=== PATIENT | male | born 1955 | race Caucasian/White ===

== ENCOUNTER 2017-01-15 12:06 | Inpatient (IN) | payer OTHER ==
[2017-01-15] MEDS ORDERED: NS 1,000 ML IV ONE (12:42)
--- NOTE | 2017-01-15 12:59 | EKG Report ---
Test Performed on : 01/15/2017 12:34:40 PM Test Reason : chest pain Blood Pressure : / mmHG Vent. Rate : 120 BPM Atrial Rate : 120 BPM P-R Int : 170 ms QRS Dur : 088 ms QT Int : 296 ms P-R-T Axes : 064 062 063 degrees QTc Int : 418 ms Sinus tachycardia. Otherwise normal ECG No previous ECGs available Unconfirmed Result
--- NOTE | 2017-01-15 13:00 | PROVIDER DOCUMENTATION ---
HPI-Cardiac General - General Chief Complaint: Palpitations Stated Complaint: WEAKNESS/PALPIATIONS Time Seen by Provider: 01/15/17 12:22 Source: patient Allergies/Adverse Reactions: Patient Allergies Allergy/AdvReac Type Severity Reaction Status Date / Time Penicillins AdvReac Unknown Verified 01/15/17 12:14 Home Medications: Home Medication List Medication Instructions Recorded Confirmed Last Taken Type Canagliflozin [Invokana] 300 mg PO DAILY 01/15/17 01/15/17 Unknown History Dulaglutide [Trulicity] 1.5 mg SQ 01/15/17 Unknown History Metformin HCl [Metformin HCl ER] 1,000 mg PO BID 01/15/17 01/15/17 Unknown History Pioglitazone HCl 45 mg PO DAILY 01/15/17 01/15/17 Unknown History SIMVAstatin [Zocor] 40 mg PO QHS 01/15/17 01/15/17 Unknown History Tamsulosin HCl 0.4 mg PO BID 01/15/17 01/15/17 Unknown History - History of Present Illness-Cardiac Nature of Presenting Problem: Pt is a 61 yom who came to the ED with a cc of palpitations. Pt reports he was previously diagnosed with a heart murmur by his doctor. This morning the pt and his were eating breakfast and he took his fourth shot of trulicity, and shortly after that he started having heart palpitations. Pt reports this is the first time this has happen after taking the trulicity. Pt reports he also is having leg cramps that wake him up 3-4 times a night, which have been going on for a year but over the past two weeks the cramps have worsened. Quality of Pain: reports: none Onset/Duration: this morning Timing: still present Context/Activities at Onset: reports: none Modifying Factors: improves with: nothing Palpitation Quality: fast/pounding heart beat Recent use of:: reports: no stimulants Nitro Today/Relief: reports: no nitro taken today Aspirin Treatment Today: reports: no aspirin today Prior Chest Pain/Cardiac Workup: reports: no prior chest pain Associated Symptoms: reports: denies symptoms Similar Symptoms Previously?: No Recently Seen Here or By Another Healthcare Provider: No Review of Systems - Adult - REVIEW OF SYSTEMS - ADULT Constitutional: reports: chills. denies: fever, fatique Eyes: reports: no symptoms reported Ears, Nose, Mouth & Throat: denies: sinus problem, mouth/dental pain Cardiovascular: reports: palpitations, other (tachycardia). denies: chest pain , irregular heart rate, poor circulation Respiratory: reports: no symptoms reported Gastrointestinal: denies: diarrhea, nausea, vomiting Genitourinary: reports: no symptoms reported Musculoskeletal: reports: frequent leg cramps. denies: joint pain, joint swelling Integumentary: reports: no symptoms reported Neurological: reports: no symptoms reported Psychiatric: reports: no symptoms reported Endocrine: reports: no symptoms reported Hematologic/Lymphatic: reports: no symptoms reported Allergic/Immunologic: reports: no symptoms reported All Other Systems: Reviewed and Negative Past History - Adult - PAST MEDICAL HISTORY-ADULT Review of Records: reports: Old Records Reviewed, Nursing Assessment Review Major Childhood Illnesses: reports: denies history Cardiovascular: reports: murmur Respiratory: reports: denies history Gastrointestinal: reports: denies history Obstetrical/Gynecological: reports: denies history Genitourinary: reports: denies history Musculoskeletal: reports: denies history Neurological: reports: denies history Endocrine/Immune: reports: Diabetes Other Conditions: reports: denies history - IMMUNIZATION STATUS Childhood Immunizations: See Nurse Assessment Flu Vaccine: See Nurse Assessment - FAMILY HISTORY Family History: reviewed, not pertinent Physical Exam-General - PHYSICAL EXAM-ADULT Initial Vital Signs Reviewed: Yes - CONSTITUTIONAL General Appearance: appears well, alert, no apparent distress - EYES Eyes: PERRL/EOMI, pink conjunctivae, fundi clear, no AV nicking - HEAD, EARS, NOSE, MOUTH & THROAT HENMT: normocephalic/atraumatic, moist mucous membranes, normal ENT inspection - NECK Neck: non-tender, full range of motion - RESPIRATORY Respiratory: chest non-tender, lungs clear, normal breath sounds - CARDIOVASCULAR Cardiovascular: tachycardia - GASTROINTESTINAL (ABDOMEN) Abdominal Exam: normal bowel sounds, non tender, soft - MUSCULOSKELETAL Back Exam: normal inspection, no CVA tenderness Extremity: normal range of motion, non-tender, normal gait - SKIN Integumentary: normal color, warm - NEUROLOGIC Neurologic: grossly normal - PSYCHIATRIC Psych/Mental Status: normal mood/affect, normal thought content, normal thought process, oriented x 3 Progress - PLAN OF CARE/RESULTS Progress/Plan/Lab Results: Vital Signs - 24 hr 01/15/17 12:10 Temperature 98.1 F Pulse Rate 133 H Respiratory 17 Rate Blood Pressure 115/70 Orders Category Date Time Status Cardiac Monitoring DIRECTED Care 01/15/17 12:42 Active Saline Loc NOW Care 01/15/17 12:42 Active CHEST-PORTABLE [RAD] Stat Exams 01/15/17 12:42 Taken CBC WITH ELECTRONIC DIFF [HEME] Stat Lab 01/15/17 12:42 Uncollected CK PROFILE [SP CHEM] Stat Lab 01/15/17 12:42 Uncollected COMPREHENSIVE METABOLIC PANEL [CHEM] Stat Lab 01/15/17 12:42 Uncollected D-DIMER [CHEM] Stat Lab 01/15/17 12:42 Uncollected MAGNESIUM [CHEM] Stat Lab 01/15/17 12:42 Uncollected PRO B-NATRIURETIC PEPTIDE Stat Lab 01/15/17 12:42 Uncollected PROTIME WITH INR [COAG] Stat Lab 01/15/17 12:42 Uncollected PTT [COAG] Stat Lab 01/15/17 12:42 Uncollected TROPONIN T Stat Lab 01/15/17 12:[address] W/POSS RFLX CULT [URINALYSIS] Stat Lab 01/15/17 12:42 Uncollected URINE DRUG SCREEN PL Stat Lab 01/15/17 12:42 Uncollected 0.9% Sodium Chloride Inj [Ns] 1,000 ml Med 01/15/17 12:42 Active IV 999 mls/hr EKG [EKG] Stat Ther 01/15/17 12:25 Ordered Laboratory Tests 01/15/17 01/15/17 01/15/17 13:23 13:23 13:23 WBC 12.01 H RBC 4.68 L Hgb 14.1 Hct 43.4 MCV 92.7 MCH 30.1 MCHC 32.5 L RDW Std Deviation 14.0 Plt Count 187 MPV 9.6 Immature Gran % (Auto) 0.3 Neut % (Auto) 90.5 H Lymph % (Auto) 3.7 L Delta % (Auto) 5.2 Eos % (Auto) 0.1 Baso % (Auto) 0.2 Immature Gran # (Auto) 0.04 Neut # (Auto) 10.88 H Lymph # (Auto) 0.44 L Delta # (Auto) 0.62 H Eos # (Auto) 0.01 Baso # (Auto) 0.02 PT INR APTT (Factor Assay) D-Dimer Sodium 133 L Potassium 4.2 Chloride 98 Carbon Dioxide 22 L Anion Gap 14 BUN 17 Creatinine 0.9 Estimated GFR/1.73 m2 > 60 BUN/Creatinine Ratio 19 Glucose 159 H Calculated Osmolality 271 Calcium 9.4 Magnesium 1.8 Total Bilirubin 0.40 AST 17 ALT 16 Alkaline Phosphatase 74 Creatine Kinase 141 Troponin T Nbl-L-Uuuciefkjzf Pept 58 Total Protein 6.6 Albumin 4.2 Globulin 2.0 Albumin/Globulin Ratio 2.0 Urine Source Urine Color Urine Clarity Urine pH Ur Specific [place] Urine Protein Urine Ketones Urine Blood Urine Nitrite Urine Bilirubin Urine Urobilinogen Urine Microscopic RBC Urine WBC Urine Bacteria Urine Glucose Urine Opiates Screen Ur Oxycodone Screen Urine Methadone Screen Ur Barbituates Screen Ur Tricyclics Screen Ur Phencyclidine Scrn Ur Amphetamines Screen U Methamphetamines Scrn Urine MDMA Screen U Benzodiazepines Scrn Urine Cocaine Screen U Cannabinoids Screen 01/15/17 01/15/17 01/15/17 13:23 13:23 13:23 WBC RBC Hgb Hct MCV MCH MCHC RDW Std Deviation Plt Count MPV Immature Gran % (Auto) Neut % (Auto) Lymph % (Auto) Delta % (Auto) Eos % (Auto) Baso % (Auto) Immature Gran # (Auto) Neut # (Auto) Lymph # (Auto) Delta # (Auto) Eos # (Auto) Baso # (Auto) PT 14.0 INR 1.05 APTT (Factor Assay) 28.4 D-Dimer < 0.22 L Sodium Potassium Chloride Carbon Dioxide Anion Gap BUN Creatinine Estimated GFR/1.73 m2 BUN/Creatinine Ratio Glucose Calculated Osmolality Calcium Magnesium Total Bilirubin AST ALT Alkaline Phosphatase Creatine Kinase Troponin T < 0.010 Aaq-Z-Yjdjabqsndy Pept Total Protein Albumin Globulin Albumin/Globulin Ratio Urine Source VOIDED Urine Color YELLOW Urine Clarity CLEAR Urine pH 6.5 Ur Specific [place] 1.010 Urine Protein NEGATIVE Urine Ketones 1+(Small) A Urine Blood NEGATIVE Urine Nitrite NEGATIVE Urine Bilirubin NEGATIVE Urine Urobilinogen NORMAL Urine Microscopic RBC Not Reportable Urine WBC NEGATIVE Urine Bacteria 1+ Urine Glucose 3+(500 mg/dL) A Urine Opiates Screen Ur Oxycodone Screen Urine Methadone Screen Ur Barbituates Screen Ur Tricyclics Screen Ur Phencyclidine Scrn Ur Amphetamines Screen U Methamphetamines Scrn Urine MDMA Screen U Benzodiazepines Scrn Urine Cocaine Screen U Cannabinoids Screen 01/15/17 13:23 WBC RBC Hgb Hct MCV MCH MCHC RDW Std Deviation Plt Count MPV Immature Gran % (Auto) Neut % (Auto) Lymph % (Auto) Delta % (Auto) Eos % (Auto) Baso % (Auto) Immature Gran # (Auto) Neut # (Auto) Lymph # (Auto) Delta # (Auto) Eos # (Auto) Baso # (Auto) PT INR APTT (Factor Assay) D-Dimer Sodium Potassium Chloride Carbon Dioxide Anion Gap BUN Creatinine Estimated GFR/1.73 m2 BUN/Creatinine Ratio Glucose Calculated Osmolality Calcium Magnesium Total Bilirubin AST ALT Alkaline Phosphatase Creatine Kinase Troponin T Wiq-C-Kmvzlqnysop Pept Total Protein Albumin Globulin Albumin/Globulin Ratio Urine Source Urine Color Urine Clarity Urine pH Ur Specific [place] Urine Protein Urine Ketones Urine Blood Urine Nitrite Urine Bilirubin Urine Urobilinogen Urine Microscopic RBC Urine WBC Urine Bacteria Urine Glucose Urine Opiates Screen NONE DETECTED Ur Oxycodone Screen NONE DETECTED Urine Methadone Screen NONE DETECTED Ur Barbituates Screen NONE DETECTED Ur Tricyclics Screen NONE DETECTED Ur Phencyclidine Scrn NONE DETECTED Ur Amphetamines Screen NONE DETECTED U Methamphetamines Scrn NONE DETECTED Urine MDMA Screen NONE DETECTED U Benzodiazepines Scrn NONE DETECTED Urine Cocaine Screen NONE DETECTED U Cannabinoids Screen NONE DETECTED - EKG 1 Time of EKG reading by physician:: 12:34 EKG Read and Signed by:: Marshall Morales EKG Interpretation (*Must complete 3 of following elements*): Normal Rate: 120 Rhythm: sinus tachycardia - XRAY 1 XRAY Study: Chest XRAY Interpretation: minimal atelectasis or scarring in the left base. - CONSULTS/PCP/HOSPITALIST Notification #1 *Consult/PCP/Hospitalist*: Dr. Davenport Time Discussed: 15:21 Consult Disposition: Admit Departure - Departure Time of Disposition Order: 15:06 DIAGNOSIS: Palpitations, Generalized weakness Disposition: ADMITTED INPATIENT 09 Certified Medical Emergency: Emergent Condition: Stable Referrals: Brigitte Hummel [Primary Care Provider] - Attestation - Scribe Verification/Attestation Scribe:: Delores Kerns Acting as Scribe for:: Marshall Morales Scribe documention review:: This chart was documented by a scribe and accurately reflects the service the provider performed and the decisions made by the provider.
[2017-01-15 13:29] LABS: MANUAL DIFF NEEDED? NO
[2017-01-15 13:37] LABS: BASO% 0.2 % (0.0-0.8); EOS# 0.01 X1000 (0.0-0.7); EOS% 0.1 % (0.0-10.0); HEMATOCRIT 43.4 % (42.0-52.0); HEMOGLOBIN 14.1 g/dL (14.0-18.0); IMM GRAN# 0.04 X1000 (0.0-0.04); IMM GRAN% 0.3 % (0.0-0.5); LYMPH# 0.44 X1000 (1.2-3.4); LYMPH% 3.7 % (20.5-51.1); MCH 30.1 PG (27-31); MCHC 32.5 g/dL (33-37); MCV 92.7 FL (81-99); MONO# 0.62 X1000 (0.11-0.59); MONO% 5.2 % (1.7-9.3); MPV 9.6 FL (7.4-10.4); NEUT% 90.5 % (42.2-75.2); PLT 187 X1000 (130-400); RBC 4.68 XMIL (4.7-6.1)
--- NOTE | 2017-01-15 13:38 | Diag Imaging Result Document ---
PROCEDURE NAME: CHEST-PORTABLE - 01/15/2017 PORTABLE AP CHEST: COMPARISON: No comparison films. FINDINGS: The lungs are well expanded. Minimal increased markings in the left base. The heart is not enlarged. The vessels are not distended. No consolidation. No pleural effusions identified. No free air beneath the diaphragm. IMPRESSION: Minimal atelectasis or scarring in the left base.
[2017-01-15 13:43] LABS: URINE CULTURE PL NEEDED? NO; URINE SOURCE VOIDED
[2017-01-15 13:57] LABS: UR AMPHETAMINES QUAL NONE DETECTED (NONE DETECT); UR BARBITUATES QUAL NONE DETECTED (NONE DETECT); UR BENZODIAZEPIN QUAL NONE DETECTED (NONE DETECT); UR CANNABINOIDS QUAL NONE DETECTED (NONE DETECT); UR COCAINE QUAL NONE DETECTED (NONE DETECT); UR MDMA QUAL NONE DETECTED (NONE DETECT); UR METHADONE QUAL NONE DETECTED (NONE DETECT); UR METHAMPHETAMINE QUAL NONE DETECTED (NONE DETECT); UR OPIATES QUAL NONE DETECTED (NONE DETECT); UR OXYCODONE QUAL NONE DETECTED (NONE DETECT); UR PCP QUAL NONE DETECTED (NONE DETECT); UR TCA QUAL NONE DETECTED (NONE DETECT)
[2017-01-15 13:59] LABS: AGAP 14; ALBUMIN 4.2 g/dL (3.5-5.0); ALKALINE PHOSPHATASE 74 U/L (32-122); BUN 17 mg/dL (8-22); CALCIUM 9.4 mg/dL (8.8-10.2); CHLORIDE 98 mmol/L (98-107); CK PROFILE 141 U/L (24-204); COSMO 271; GOT 17 U/L (10-34); GPT 16 U/L (10-44); MAGNESIUM 1.8 mg/dL (1.5-2.7); POTASSIUM 4.2 mmol/L (3.5-5.1); SODIUM 133 mmol/L (136-145); TCO2 22 mmol/L (25-35); TOTAL PROTEIN 6.6 g/dL (6.3-8.3)
[2017-01-15 14:01] LABS: BILIRUBIN URINE NEGATIVE (NEGATIVE); BLOOD URINE NEGATIVE (NEGATIVE); CLARITY CLEAR (CLEAR); COLOR YELLOW; LEUKOCYTES URINE NEGATIVE (NEGATIVE); NITRITE URINE NEGATIVE (NEGATIVE); PH URINE 6.5; PROTEIN URINE NEGATIVE (NEGATIVE); UROBILINOGEN URINE NORMAL
[2017-01-15 14:09] LABS: INR 1.05 (0.86-1.15)
[2017-01-15 14:10] LABS: PTT PL 28.4 Seconds (22.6-43.9)
[2017-01-15] MEDS ORDERED: ZOFRAN IV PRN (18:21)
[2017-01-15] MEDS ORDERED: SALINE LOCK IV FLUID XX ONE (18:25)
[2017-01-15] MEDS ORDERED: PNEUMOVAX 23 IM ONE (18:45)
[2017-01-15] MEDS ORDERED: TYLENOL PO PRN (19:59)
[2017-01-15] MEDS: HUMALOG DOSE (PARKWAY) SUBQ SCH (20:14)
[2017-01-15] MEDS: FLOMAX PO SCH (20:14)
[2017-01-15] MEDS ORDERED: ZOCOR PO SCH (21:00)
--- NOTE | 2017-01-16 06:40 | EKG Report ---
Test Performed on : 01/16/2017 06:35:02 AM Test Reason : chest pain Blood Pressure : / mmHG Vent. Rate : 096 BPM Atrial Rate : 096 BPM P-R Int : 180 ms QRS Dur : 094 ms QT Int : 356 ms P-R-T Axes : 038 018 060 degrees QTc Int : 449 ms Normal sinus rhythm. Normal ECG When compared with ECG of 15-JAN-2017 12:34, No significant change was found Unconfirmed Result
[2017-01-16] MEDS: HUMALOG DOSE (PARKWAY) SUBQ SCH ×2 (06:44→11:37)
[2017-01-16] MEDS ORDERED: PRILOSEC PO SCH (07:00)
[2017-01-16 07:01] LABS: HEMATOCRIT 41.1 % (42.0-52.0); HEMOGLOBIN 13.4 g/dL (14.0-18.0); HEMOGLOBIN A1C 7.2 % (4.8-6.0); MCH 30.4 PG (27-31); MCHC 32.6 g/dL (33-37); MCV 93.2 FL (81-99); MPV 9.4 FL (7.4-10.4); RBC 4.41 XMIL (4.7-6.1)
[2017-01-16 07:18] LABS: AGAP 10; ALBUMIN 3.5 g/dL (3.5-5.0); ALKALINE PHOSPHATASE 68 U/L (32-122); BUN 12 mg/dL (8-22); CHLORIDE 105 mmol/L (98-107); COSMO 275; GOT 13 U/L (10-34); GPT 13 U/L (10-44); POTASSIUM 3.9 mmol/L (3.5-5.1); SODIUM 137 mmol/L (136-145); TCO2 22 mmol/L (25-35); TOTAL PROTEIN 6.1 g/dL (6.3-8.3)
[2017-01-16] MEDS: FLOMAX PO SCH (10:49)
[2017-01-16] MEDS ORDERED: NS 1,000 ML IV ONE (11:02)
--- NOTE | 2017-01-16 13:41 | HISTORY AND PHYSICAL ---
CHIEF COMPLAINT: Palpitations. HISTORY OF PRESENT ILLNESS: This is a 61-year-old male with a history of insulin-dependent diabetes, and high cholesterol and BPH who presented to the emergency room complaining of palpitations accompanied by generalized weakness and some dizziness. He states he has been having leg cramps for about the past 2 years but over the last few weeks the leg cramps have increased and palpitations began. The episode today that was accompanied by dizziness and generalized weakness was the first time he had experienced dizziness or generalized weakness. He denied syncope, diaphoresis, any change in vision, nausea, vomiting. He states he was seen by his primary care physician and diagnosed with a heart murmur within the last 2 months. He was supposed to go have a repeat EKG in this physician's office later this week. EKG revealed sinus tachycardia at a rate of [address]-T changes. Repeat EKG revealed sinus rhythm at a rate of 96. Blood pressures ranged 103-115 over the 50s and 60s with heart rates 120 down to 106. Troponins were negative on multiple occasions. Urine drug screen was negative. He was given a L of fluid and admitted for further evaluation and treatment. PAST MEDICAL HISTORY: High cholesterol, insulin-dependent diabetes, BPH with bladder outlet obstruction. PAST SURGICAL HISTORY: Denies. SOCIAL HISTORY: Denies alcohol, tobacco, or illicit drug use. He does live with his . ALLERGIES: Penicillin which causes unknown reaction. HOME MEDICATIONS: Trulicity 1.5 mg weekly, Actos 45 mg daily, Invokana 300 mg daily, tamsulosin 0.4 b.i.d., Zocor 40 at bedtime, metformin ER 1000 b.i.d. REVIEW OF SYSTEMS: A 14 point review of systems is discussed with patient with pertinent positives stated in HPI. He denies chest pain, shortness of breath, PND, orthopnea, cough, fever, chills, any recent weight loss, weight gain, any nausea, vomiting, diarrhea, constipation, black or bloody vomitus black or bloody stools. DIAGNOSTICS: WBC is 12.1, with hemoglobin 14.1, hematocrit 43.4. PHYSICAL EXAMINATION: GENERAL: This is a 61-year-old male, who is sitting in the bed, in no distress. VITAL SIGNS: Blood pressure is 118/55 with a heart rate of 106, respirations are 18, temperature is 98.4 degrees oral with room air saturation of 96%. HEENT: Head is normocephalic, atraumatic. Pupils equal, round, react to light. EOMs are intact. Sclerae anicteric. Mucous membranes are moist. NECK: Supple. Trachea midline. CARDIOVASCULAR: Regular rate and rhythm. S1, S2 appreciated. PULMONARY: Breath sounds are clear. No increased work of breathing noted. GASTROINTESTINAL: Abdomen is soft, nontender, nondistended with bowel sounds in all 4 quadrants. BACK: No CVAT. No spine tenderness. MUSCULOSKELETAL: Good range of motion to joints. NEUROLOGIC: He is alert and oriented x3. Cranial nerves 2-12 grossly intact. EXTREMITIES: No clubbing, cyanosis, or edema. Pulses are palpable x4. Calves are nontender. SKIN: Warm and dry. LABS: WBC is 12.01 with hemoglobin 14.1, hematocrit 43.4, platelets of 187,000. INR is 1.05 with a D-dimer of less than 0.22. Sodium is 133, potassium 4.2, BUN 17, creatinine 0.9, with blood sugar of 210. Troponins negative on multiple occasions. Urine drug screen is negative. Chest x- ray revealed minimal atelectasis or scarring in the left base. ASSESSMENT AND PLAN: 1. Palpitations. The patient reports palpitations over the past few months although the episode prior to coming into the hospital was accompanied by dizziness and some shortness of breath. He denied any syncope or near syncope, any change in vision, or any other accompanying symptoms. Echocardiogram has been performed. We will call Cardiology for a read and we will consult Cardiology. We will continue to trend troponins or he will be placed on telemetry. 2. Diabetes mellitus. We will hold all of his home medications. He will be placed on pattern blood glucose with sliding scale insulin. 3. BPH with bladder outlet obstruction. We will continue his Flomax b.i.d. 4. We will hold patient NPO until seen by Cardiology in the morning. 5. For DVT prophylaxis we will give Lovenox and for GI prophylaxis Prilosec. Further treatments pending hospital course. Dictated by HOSEA Dick for Jorge Davenport MD
[2017-01-16 14:03] VITALS: BP 107/64
--- NOTE | 2017-01-16 15:36 | ECHO REPORT ---
ORDER DATE: 01/15/2017 INTERPRETING PHYSICIAN: Dr. Sadi Garcia ECHOCARDIOGRAPHIC MEASUREMENTS: Interventricular septum: 0.9 cm. Left ventricular posterior wall: 0.9 cm. Diastolic diameter: 4.5 cm. Left atrium: 3.3 cm. Aortic root: 3.3 cm. SUMMARY OF THE 2-DIMENSIONAL IMAGIN. Mitral valve was normal. Tricuspid valve was normal. Pulmonic valve was normal. 2. Aortic valve leaflets are trileaflet, sclerosed. 3. Normal left ventricular cavity size. Estimated ejection fraction of 65%. 4. There is trace to mild mitral regurgitation. Peak velocity across the aortic valve was 3.9 m/sec with a mean gradient of 39 mmHg. Peak gradient of 62 mmHg. There is aortic valve area of 1.4 squared cm. There is a moderate aortic stenosis associated by mild aortic regurgitation. Would recommend transesophageal echocardiogram to better evaluate aortic valve area. 5. There is mild mitral regurgitation. Mild tricuspid regurgitation. Peak velocity across the tricuspid valve was 2.8 m/sec. Pulmonary artery systolic pressure of 42 mmHg. 6. There is no pericardial effusion or obvious intracardiac mass.
--- NOTE | 2017-01-16 16:19 | CONSULTATION ---
DATE OF CONSULTATION: 01/16/2017 IMPRESSION: 1. Episode of near syncope accompanied by tremulousness. Suspect likely intravascular volume depletion, but cannot entirely exclude possible infectious etiology. 2. Mild aortic stenosis by echocardiography. Left ventricle appeared hyperdynamic on study. 3. Type 2 diabetes mellitus requiring multiple agents. RECOMMENDATIONS: 1. Additional intravenous hydration as patient continues with mild tachycardia. 2. Would obtain blood cultures. 3. Favor discontinuation of Invokana, to cut down on glycosuria, which may be contributing to dehydration tendencies. HISTORY: This 61-year-old, white male, with past history of type 2 diabetes mellitus for approximately 8-10 years and prostate hypertrophy was admitted to emergency room after an episode of lightheadedness and tremulousness. He only recently was noted to have a murmur. Echocardiography demonstrated mild aortic stenosis and a hyperdynamic left ventricle. Cardiology was consulted. 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 He was started on Invokana last year to try and improve his glucose control. About a month ago, he was started on Trulicity. He is aware of his need to try and drink copious amounts of water. He describes polyuria. Yesterday, he was painting a ceiling and climbing up a short step ladder. He relates feeling weak, lightheaded and tremulous. He felt cold. He checked his blood sugar and this was 141. His took his blood pressure and it was 120/88. She did notice that he had tachycardia with heart rate around 130 beats per minute. He continued lightheaded, tremulous and felt cold. He went and took a hot bath to see if this would help. He felt some improvement when he warmed up. However, he continued to have symptoms reemerge thereafter and came to the emergency room for evaluation. He was afebrile on presentation. There is no cough or dysuria. He has been given intravenous fluid resuscitation and observed on telemetry. He demonstrated sinus tachycardia, but no arrhythmias. He is feeling better this morning. However, he still has mild tachycardia. He also relates he has had some tendency for leg cramps over the past year, particularly at night. There has been no chest pain or dyspnea. PAST MEDICAL HISTORY: 1. Type 2 diabetes mellitus for approximately 8-10 years. 2. Negative for hypertension. 3. Prostate hypertrophy. MEDICATIONS: Prior to admission as listed. SOCIAL HISTORY: He is . 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 He does not smoke nor use alcohol. FAMILY HISTORY: Positive for coronary disease. His mother had her first clinical event with coronary disease in her 50s. REVIEW OF SYSTEMS: Pulmonary: Negative. Gastrointestinal: Negative. Constitutional: Noncontributory beyond history of present illness. Remainder of review of systems noncontributory beyond history of present illness with 14 total systems reviewed. PHYSICAL EXAMINATION: General: This is a pleasant adult male in no distress. Vital Signs: As recorded are stable. HEENT: Extraocular movements intact. Mucous membranes moist. Neck: Supple without jugular venous distention. There are no carotid bruits. Chest: Clear to auscultation. Cardiac: Exam was a regular rate and rhythm with a grade 2/6 crescendo/decrescendo systolic murmur at the right upper sternal border. No gallop could be appreciated. Abdomen: Soft, nontender. Bowel sounds are normal. Extremities: Without edema. Neurologic Exam: Reveals him to be alert and fully oriented. Speech is fluent. He moves all 4 extremities equally well. DIAGNOSTIC DATA: ECG demonstrates sinus tachycardia but is otherwise within normal limits.
[2017-01-16] MEDS ORDERED: LIPITOR PO SCH (21:00)
--- NOTE | 2017-01-17 10:04 | DISCHARGE SUMMARY ---
ADMISSION DATE: 01/15/2017 DISCHARGE DATE: 01/16/2017 DIAGNOSES: 1. Palpitations. 2. Diabetes mellitus. 3. Benign prostatic hyperplasia with bladder outlet obstruction. 4. Mild aortic stenosis. 5. Intravascular volume depletion, resolved. CONSULTS: Dr. Michel Adams, cardiology. DIAGNOSTICS: 1. On 01/15/2017, chest x-ray revealed minimal atelectasis in the left lung base. 2. Electrocardiogram revealed a sinus rhythm at a rate of 96, no ST-T abnormalities. 3. Blood cultures pending. HOSPITAL COURSE: Mr. Nelson presented to the emergency room after having palpitations accompanied by generalized weakness and some dizziness. On arrival to the emergency room, he did have a heart rate of 133. He was given a liter of IV fluids. The heart rates did drop to the 110s. He has had no further episodes of palpitations nor generalized weakness. He has remained on telemetry and has been sinus rhythm with no ectopy. He does state that he has had episodes of palpitations over the last few months. These started shortly after starting Invokana. In the past, he had no accompanying symptoms. They did resolve spontaneously. He does report an increase in leg cramps also after starting Invokana. We did hold all of his antidiabetic medications. We did place him on q.4 hours blood sugars with sliding scale insulin. His blood sugars ranged from 70 to it looks like 112. He did have a hemoglobin A1c of 7.2. He did have a white count of 12 on arrival. It did decrease to 10. He has been afebrile with no reported symptoms of any illness. In this setting with a negative chest x-ray, he did not receive antibiotics. This could very well have been secondary to stress. Troponins were negative, as was CPK. Urine drug screen was negative. Echocardiogram revealed diastolic dysfunction with mild to moderate aortic stenosis with a trileaflet aortic valve per verbal report. We are awaiting formal report. DISCHARGE PHYSICAL EXAMINATION: Cardiovascular: Regular rate and rhythm. S1 and S2 are appreciated. He does have a 2-3/6 systolic murmur. Pulmonary: Breath sounds are clear. No increased work of breathing noted. Chest does rise and fall symmetrically with respiration. Gastrointestinal: Abdomen is soft, nontender, nondistended with bowel sounds in all 4 quadrants. Back: No CVAT. No spine tenderness. Extremities: No clubbing, cyanosis, or edema. Pulses are palpable x4. Calves are nontender. Neurologic: He is alert and oriented x3. Discharge Vital Signs: Blood pressure is 107/64 with a heart rate of 90, respirations are 20, temperature is 98.7 degrees oral, with room air saturations of 96-98%. DISCHARGE ACTIVITY: As tolerated. DISCHARGE DIET: Diabetic. DISCHARGE FOLLOWUP: He is to follow up with Dr. Adams in 2 weeks, February 09 at 10:30 a.m. He is follow up with Brigitte Hummel within 1-2 weeks. Appointment is set for January 23 at 10:30. At that time, he will keep a record of his blood glucose and further medication management can be decided. DISCHARGE MEDICATIONS: Trulicity 1.5 mg subcutaneous weekly, tamsulosin 0.4 p.o. b.i.d., metformin ER 1000 mg p.o. b.i.d., Lipitor 20 mg p.o. at bedtime. Actos and Invokana have been discontinued. DISCHARGE INSTRUCTIONS: He is being discharged home in stable condition with family members. He has been instructed to stay off work for the next 5 days, to pay close attention to hydration. This is a greater than 30 minute discharge. Dictated by HOSEA Dick for Jorge Davenport MD
== END 2017-01-16 15:02 | disposition home or self-care (01) | DRG 309 ==
LOC: P.ED 12:06 → OBSVTOIN 12:07 → P.MEDSURG 12:07
PROVIDERS: ATTEND Family Medicine
DX: R00.2 Palpitations (principal); N13.8 Other obstructive and reflux uropathy; E11.9 Type 2 diabetes mellitus without complications; N40.1 Benign prostatic hyperplasia with lower urinary tract symptoms; I35.0 Nonrheumatic aortic (valve) stenosis; E86.9 Volume depletion, unspecified; E78.00 Pure hypercholesterolemia, unspecified; R25.2 Cramp and spasm; R01.1 Cardiac murmur, unspecified; Z79.84 Long term (current) use of oral hypoglycemic drugs; Z79.899 Other long term (current) drug therapy; Z82.49 Family history of ischemic heart disease and other diseases of the circulatory system
CPT/HCPCS: 71010; 80053; 80305; 81001; 82550; 82948; 83036; 83735; 83880; 84443; 84484; 85025; 85027; 85379; 85610; 85730; 86140; 87040; 90732; 93005; 93308; J1815; J7030